=== PATIENT | female | born 1980 | race African-American/Black ===

== ENCOUNTER 2017-08-10 19:43 | Inpatient (IN) | payer OTHER ==
[~2017-08-10] VITALS: Ht 162.6 cm; Wt 79.1 kg
[2017-08-10 20:03] VITALS: BP 123/75
[2017-08-10] MEDS ORDERED: OXYTOCIN 30U/ 0.9% NaCL 500ML 500 ML IV PRN (20:43)
[2017-08-10] MEDS ORDERED: LACTATED RINGERS 1,000 ML IV SCH ×2 (20:43→21:34)
[2017-08-10] MEDS ORDERED: D5%-LACTATED RINGERS 1,000 ML IV SCH (20:43)
[2017-08-10] MEDS ORDERED: OXYTOCIN 30U/ 0.9% NaCL 500ML 500 ML IV ONE (20:43)
[2017-08-10] MEDS ORDERED: METOCLOPRAMIDE 5 MG/ML, 2ML IVPush PRN (21:00)
[2017-08-10] MEDS ORDERED: ONDANSETRON 2MG/ML, 2ML IVPush PRN (21:00)
[2017-08-10] MEDS ORDERED: SODIUM CITRATE/CITRIC ACID 30 ML UDC PO PRN (21:00)
[2017-08-10] MEDS ORDERED: FENTANYL PF 100 MCG/2ML IV PRN (21:00)
[2017-08-10] MEDS ORDERED: PENICILLIN GK 5,000,000 UNITS in SODIUM CHLORIDE 0.9% 100 ML IVPB ONE (21:00)
[2017-08-10] MEDS ORDERED: FENTANYL PF 100 MCG/2ML IVPush PRN (21:00)
[2017-08-10] MEDS ORDERED: CALCIUM CARBONATE 500 MG TAB.CHEW PO PRN (21:00)
[2017-08-10] MEDS ORDERED: OXYTOCIN 30U/ 0.9% NaCL 500ML 500 ML ONE (21:02)
[2017-08-10] MEDS ORDERED: NEWBORN KIT ONE (21:08)
[2017-08-10 21:14] LABS: MEAN CORPUSCULAR HEMOGLOBIN 23.8 pg (27.0-34.8); MEAN CORPUSCULAR HGB CONC 31.2 g/dL (32.4-35.8); MEAN CORPUSCULAR VOLUME 76.2 fL (80-100); MEAN PLATELET VOLUME 11.5 fL (7.4-10.4); PLATELET COUNT 249 x10^3/uL (130-400); RED BLOOD COUNT 4.64 x10^6/uL (3.82-5.3)
[2017-08-10] MEDS ORDERED: FENTANYL/BUPIV./NS/PF 250 ML EPIDCONT SCH (21:34)
[2017-08-10] MEDS ORDERED: BUPIVACAINE/PF 0.25% ONE (21:37)
[2017-08-10] MEDS ORDERED: FENTANYL/BUPIV./NS/PF 250 ML EPIDCONT ONE (21:37)
[2017-08-10] MEDS ORDERED: BUPIVACAINE 0.25% ONE (21:41)
[2017-08-10] MEDS ORDERED: FENTANYL PF 100 MCG/2ML ONE (21:41)
[2017-08-10 21:47] LABS: BASOPHILS # (AUTO) 0.03 x10^3/uL (0-0.1); BASOPHILS % (AUTO) 0 % (0-1); EOSINOPHILS # (AUTO) 0.01 x10^3/uL (0-0.4); EOSINOPHILS % (AUTO) 0 % (1-7); LYMPHOCYTES # (AUTO) 2.99 x10^3/uL (1-3.4); LYMPHOCYTES % (AUTO) 25 % (22-44); MD SCAN; MONOCYTES # (AUTO) 0.91 x10^3/uL (0.2-0.8); MONOCYTES % (AUTO) 8 % (2-9); NEUTROPHILS % (AUTO) 67 % (42-75)
[2017-08-10] MEDS ORDERED: EPHEDRINE 50 MG/ML, 1ML IVPush PRN (22:00)
[2017-08-10] MEDS ORDERED: LACTATED RINGERS 1,000 ML IVBOLUS PRN (22:00)
[2017-08-10] MEDS ORDERED: NALOXONE 0.4 MG/ML, 1ML IVPush PRN (22:00)
[2017-08-11] MEDS: PENICILLIN GK 2,500,000 UNITS in DEXTROSE 5% 100 ML IVPB SCH ×2 (01:01→05:04)
[2017-08-11] MEDS ORDERED: LIDOCAINE-MPF 1%, 5ML ONE (02:18)
[2017-08-11] MEDS ORDERED: DIPH,PERTUSS(ACELL),TET VAC/PF NC IM-VACC PRN (03:00)
[2017-08-11] MEDS ORDERED: MISOPROSTOL 200 MCG TABLET PR PRN (03:00)
[2017-08-11] MEDS ORDERED: CALCIUM CARBONATE 500 MG TAB.CHEW PO PRN (03:00)
[2017-08-11] MEDS ORDERED: ACETAMINOPHEN 325 MG TABLET PO PRN ×2 (03:00)
[2017-08-11] MEDS ORDERED: OXYcodone/APAP 5/325MG TABLET PO PRN ×2 (03:00)
[2017-08-11] MEDS ORDERED: RHOGAM FROM BLOOD BANK 1 NOTE EA IM/IV ONE (03:00)
[2017-08-11] MEDS ORDERED: DOCUSATE 100 MG CAPSULE PO PRN (03:00)
[2017-08-11] MEDS ORDERED: ONDANSETRON 2MG/ML, 2ML IV PRN (03:00)
[2017-08-11] MEDS ORDERED: MAGNESIUM HYDROXIDE 8%, 30ML UDC PO PRN (03:00)
[2017-08-11] MEDS ORDERED: ONDANSETRON 4 MG TABLET ONE (06:31)
[2017-08-11] MEDS ORDERED: ONDANSETRON ODT 4 MG PO PRN (07:00)
[2017-08-11] MEDS: PRENATAL VIT/IRON/FA 1 EACH TABLET PO SCH (09:00)
[2017-08-11] MEDS ORDERED: IBUPROFEN 600 MG TABLET ONE (09:25)
[2017-08-11] MEDS: IBUPROFEN 600 MG TABLET PO PRN ×2 (09:26→17:52)
[2017-08-11] MEDS: OXYTOCIN 30U/ 0.9% NaCL 500ML 500 ML IV SCH ×3 (09:27→22:37)
[2017-08-11 13:50] VITALS: BP 114/71
[2017-08-11 17:10] VITALS: BP 134/80
[2017-08-11 17:40] LABS: BASOPHILS # (AUTO) 0.01 x10^3/uL (0-0.1); BASOPHILS % (AUTO) 0 % (0-1); EOSINOPHILS % (AUTO) 0 % (1-7); LYMPHOCYTES # (AUTO) 2.01 x10^3/uL (1-3.4); LYMPHOCYTES % (AUTO) 10 % (22-44); MD SCAN; MEAN CORPUSCULAR HEMOGLOBIN 24.1 pg (27.0-34.8); MEAN CORPUSCULAR HGB CONC 31.2 g/dL (32.4-35.8); MEAN CORPUSCULAR VOLUME 77.1 fL (80-100); MEAN PLATELET VOLUME 11.2 fL (7.4-10.4); MONOCYTES # (AUTO) 1.32 x10^3/uL (0.2-0.8); MONOCYTES % (AUTO) 7 % (2-9); NEUTROPHILS # (AUTO) 17.11 x10^3/uL (1.8-6.8); NEUTROPHILS % (AUTO) 84 % (42-75); PLATELET COUNT 200 x10^3/uL (130-400); RED BLOOD COUNT 4.29 x10^6/uL (3.82-5.3); RED CELL DISTRIBUTION WIDTH 16.1 % (9.6-15.2)
[2017-08-11 20:45] VITALS: BP 121/68
[2017-08-12] MEDS: IBUPROFEN 600 MG TABLET PO PRN ×2 (00:28→07:38)
[2017-08-12 00:32] VITALS: BP 108/67
[2017-08-12 04:05] VITALS: BP 116/74
[2017-08-12] MEDS: OXYTOCIN 30U/ 0.9% NaCL 500ML 500 ML IV SCH (07:23)
[2017-08-12] MEDS: PRENATAL VIT/IRON/FA 1 EACH TABLET PO SCH (07:40)
[2017-08-12 09:30] VITALS: BP 121/75
[2017-08-12] MEDS ORDERED: IBUP-1222 PO (11:06)
== END 2017-08-12 12:43 | disposition home or self-care (01) | DRG 775 ==
LOC: LDOP 19:43 → LDIP 20:42 → 2NW 08-11 13:30
PROVIDERS: ADMIT Obstetrics & Gynecology; ATTEND Obstetrics & Gynecology
PROC: 10E0XZZ Delivery of Products of Conception, External Approach (ICD-10-PCS; principal; 2017-08-10)
PROC: 0KQM0ZZ Repair Perineum Muscle, Open Approach (ICD-10-PCS; 2017-08-10)
PROC: 3E0R3BZ Introduction of Anesthetic Agent into Spinal Canal, Percutaneous Approach (ICD-10-PCS; 2017-08-10)
PROC: 00HU33Z Insertion of Infusion Device into Spinal Canal, Percutaneous Approach (ICD-10-PCS; 2017-08-10)
DX: O99.824 Streptococcus B carrier state complicating childbirth (principal); O24.429 Gestational diabetes mellitus in childbirth, unspecified control; O70.1 Second degree perineal laceration during delivery; Z37.0 Single live birth; Z3A.40 40 weeks gestation of pregnancy
CPT/HCPCS: 36415; 82962; 85025; 86850; 86900; J2540; J3010; J3490; J2590; J7120